=== PATIENT | female | born 1960 | race Hispanic/Latino ===

== ENCOUNTER → 2022-02-05 | Outpatient (CLI) | payer OTHER | END | disposition home or self-care (01) | LOC: SHCH 08:40 | PROVIDERS: ATTEND Student in an Organized Health Care Education/Training Program | DX: R55 Syncope and collapse (principal); I10 Essential (primary) hypertension | CPT/HCPCS: 93306 ==

== ENCOUNTER → 2022-08-09 | Outpatient (CLI) | payer OTHER | END | disposition home or self-care (01) | LOC: RAH 12:36 | PROVIDERS: ATTEND Internal Medicine Critical Care Medicine | DX: I73.9 Peripheral vascular disease, unspecified (principal); I70.0 Atherosclerosis of aorta | CPT/HCPCS: 93925 ==